=== PATIENT | male | born 1935 | race Caucasian/White ===

== ENCOUNTER 2017-01-27 16:04 | Inpatient (IN) | payer MEDICARE, OTHER ==
--- NOTE | ~2017-01-27 | HP ---
History And Physical [address] [address] NAME: VINNY OCONNELL : 37 STATUS : ADM [place] PAT#: [id number] AGE: 81 ADM/REG DATE : 01/27/17 MR#: [id number] REPORT SERV DATE: 01/28/17 DICTATED BY: SHERLEY BURGOS DATE: 01/28/17 REPORT STATUS : Draft TRANSCRIBED BY: MODL DATE: 01/28/17 DATE OF ADMISSION: 01/27/2017 LAUNDRY SUPERINTENDENT: Dr. Mejía. CHIEF COMPLAINT: Chest pain. HISTORY OF PRESENT ILLNESS: This is a pleasant 81-year-old white male with a known history of coronary artery disease status post CABG in 1997 with last stress test, no ischemia, on 11/21/2014. He does also have mild LV dysfunction and EF 40%-45% per last echocardiogram on 07/10/2015 along with a chronic left bundle-branch block. He does also have bradycardia, which has been followed. He presented to the emergency department yesterday afternoon as he reports developing nausea and diaphoresis all day after taking tramadol and minocycline, status post squamous cell carcinoma removal from the right forehead on Wednesday, 01/26. He reports yesterday he was awakened with chest pain that radiated to his back. He denies any further chest pain or nausea recurrence since the emergency department. He denies any shortness of breath. Today, he is feeling well with no complaints. Chronically, he reports mild shortness of breath when walking up a hill. He denies any orthopnea or edema. PAST MEDICAL HISTORY: 1. Bradycardia. 2. Coronary artery disease status post CABG. 3. Hypertension. 4. Left bundle-branch block chronically. 5. Mixed hyperlipidemia. 6. Mild LV dysfunction with ejection fraction of 40%-45% with a mild paradoxical motion (in patient with left bundle branch block). Last echo was on 07/10/2015. 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 9. Cataracts. 10.[place] cell cancer. 11.Melanoma. 12.Hypothyroidism. 13.Prostate problems. 14.Staph infection to right side of the face in 2007. PAST SURGICAL HISTORY: 1. CABG in 1997. 2. Right parotid gland and salivary gland lymph node removal from right neck and radiation for 30 treatments. 3. Surgical procedure for Staph infection complication to right side of the face in 2007. 4. Squamous cell cancer removed several days ago. 5. Intraocular lens implant. History And Physical [address] [address] NAME: VINNY OCONNELL : 37 STATUS : ADM [place] PAT#: [id number] AGE: 81 ADM/REG DATE : 01/27/17 MR#: [id number] REPORT SERV DATE: 01/28/17 DICTATED BY: SHERLEY BURGOS DATE: 01/28/17 REPORT STATUS : Draft TRANSCRIBED BY: KELSY DATE: 01/28/17 SOCIAL HISTORY: with 2 children. He has never smoked. He denies alcohol or illicit drug use. FAMILY HISTORY: Positive for father with first myocardial infarction at the age of 51. Brother with myocardial infarction at the age of 51. Mother with a CVA at the age of 40 with no cardiac history. REVIEW OF SYSTEMS: Last stress test on 11/21/2014, nuclear stress test with no ischemia. Ejection fraction was 41%. Last echocardiogram was on 07/10/2015 with an EF of 40%-45%. As above per HPI, all other systems reviewed and negative. ALLERGIES: 1. SULFA, REACTION NAUSEA. 2. MORPHINE, REACTION NAUSEA. 3. TRAMADOL, REACTION NAUSEA. 4. MINOCYCLINE, REACTION NAUSEA. HOME MEDICATIONS: Reviewed and are as follows, 1. Xanax 0.25 mg p.o. every morning. 2. Refresh eye drops instilled into both eyes every morning. 3. Ascorbic acid 1000 mg p.o. every morning. 4. Aspirin chewable 81 mg p.o. at bedtime. 5. Lipitor 20 mg p.o. at bedtime. 6. Vitamin B complex one tablet p.o. every morning. 7. Dulcolax 5 mg p.o. every morning. 8. Vitamin D 5000 units p.o. every morning. 9. Ibuprofen 200 mg p.o. daily p.r.n. headache. 10.Levothyroxine 88 mcg p.o. before breakfast. 11.Lisinopril 10 mg p.o. at bedtime. 12.Minocycline 100 mg p.o. b.i.d. x10 days. 13.Vitamin E 400 units p.o. every morning. 14.Tramadol 50-100 mg p.o. every four hours p.r.n. postop pain. 15.Patanase two sprays nasally every morning into each nostril. 16.PreviDent 1 dose p.o. q.48 hours. 17.Vitamin A 10,000 units p.o. every morning. PHYSICAL EXAMINATION: VITAL SIGNS: Oxygen saturation 97% on room air, weight 95.25, temperature 98, pulse 44, respiratory rate 25, and blood pressure 127/60. GENERAL: Well developed, well nourished. In no apparent distress. HEENT: Head normocephalic. No xanthelasma. Sclera clear, anicteric. Moist mucous membranes without pallor. No lymphadenopathy. No deficits noted. NECK: Trachea midline. Supple. No thyromegaly, JVD, or bruits. RESPIRATORY: Unlabored respirations. Breath sounds are clear bilaterally to posterior auscultation with fine crackles to the lower lobes. No wheezes, rhonchi, or crackles otherwise. History And Physical [address] [address] NAME: VINNY OCONNELL : 37 STATUS : ADM [place] PAT#: [id number] AGE: 81 ADM/REG DATE : 01/27/17 MR#: [id number] REPORT SERV DATE: 01/28/17 DICTATED BY: SHERLEY BURGOS DATE: 01/28/17 REPORT STATUS : Draft TRANSCRIBED BY: KELSY DATE: 01/28/17 CARDIOVASCULAR: Regular rate and rhythm. No murmur, rub, or gallop appreciated. No chest wall tenderness to palpation. ABDOMEN: Soft, nontender, and nondistended. Active bowel sounds auscultated x4 quadrants. No organomegaly and no masses. No aortic bruit. EXTREMITIES: DP/PT and radial pulses 2+ bilaterally. No clubbing, cyanosis, or edema. SKIN: Warm, dry, overall intact with no rash. Normal turgor. There is a dressing noted to the forehead, which is clean, dry, and intact. MUSCULOSKELETAL: Moves all extremities in bed without difficulty. NEURO/PSYCH: Alert and oriented x3 with no acute distress. Affect appropriate to current situation. LABORATORY DATA: BMP: Sodium 135, potassium 3.8, creatinine 1.05, glucose 134, magnesium 1.7. CBC: White blood cell count 9, hemoglobin 12.6, hematocrit 36.1, platelets 184. Troponin is less than 0.02 x3. STUDIES: 1. Chest x-ray: Moderate cardiomegaly. Prior CABG procedure noted. Lungs are clear. 2. EKG personally interpreted, sinus bradycardia at a rate of 50 with a chronic left bundle-branch block. 3. Telemetry: Sinus bradycardia with a chronic left bundle-branch block, rate 40. ASSESSMENT AND PLAN: 1. Precordial chest pain with atypical features. Serial enzymes are negative. The patient with a chronic left bundle-branch block. He denies any chest pain at this time. Cardiac risk factors include known history of CABG in 1997, hypertension, hyperlipidemia, age of 81, and family history of coronary artery disease. We will proceed with a vasodilator stress test for risk stratification. If it is low risk with no ischemia, RN is to discharge the patient to home with followup with primary care provider and with the patient's nutrition worker, Dr. Mejía, in one month. PCP followup will be in one-two weeks. It is possible that this chest pain is in association with the medication changes as the patient had noted nausea associated with the tramadol and minocycline as well. 2. Chronic bradycardia, this is noted. We will continue to avoid AV marline blocking agents. Asymptomatic. 3. Coronary artery disease status post CABG. We will continue the patient's home cardiac medications, which include aspirin, atorvastatin, and BERNIE inhibitor. Please note, patient is not on a beta-blaine secondary to bradycardia. Follow up with Dr. Mejía in one month. 4. Chronic left bundle-branch block, this is noted. 5. Hypertension, blood pressure is stable on low-dose lisinopril. 6. Hyperlipidemia, we will continue Lipitor. 7. Squamous cell carcinoma status post resection. I will defer to consumer insight analyst regarding continuation of tramadol and minocycline as these caused the patient to have nausea. We will ask him to follow up with them in the office. Again, he will also follow up with primary care. Further recommendations forthcoming for rounding nutrition worker for [employer] who will see the History And Physical [address] [place]. [address] NAME: VINNY OCONNELL : 39 STATUS : ADM [place] PAT#: [id number] AGE: 81 ADM/REG DATE : 01/27/17 MR#: [id number] REPORT SERV DATE: 01/28/17 DICTATED BY: SHERLEY BURGOS DATE: 01/28/17 REPORT STATUS : Draft TRANSCRIBED BY: KELSY DATE: 01/28/17 patient down in the stress testing area. CARMELITA/KELSY Sherley Burgos NP / [id number] CC: CAMERON Pennington M.D. William Warren, M.D.
[2017-01-27 15:29] LABS: BASOPHILS 0.1 %; BASOPHILS ABSOLUTE 0.01 10/3/uL (0.0-0.16); EOSINOPHILS 0.1 %; EOSINOPHILS ABSOLUTE 0.01 10/3/uL (0.0-0.53); HEMOGLOBIN 12.6 g/dL (13.6-17.8); IMMATURE GRANULOCYTES 0.3 %; IMMATURE GRANULOCYTES ABSOLUTE 0.03 10/3/uL (0.0-0.11); LYMPHOCYTES 11.2 %; LYMPHOCYTES ABSOLUTE 1.01 10/3/uL (0.67-4.30); MEAN CORPUS HGB CONC 34.9 g/dL (32.0-36.0); MEAN CORPUSCULAR HEMOGLOB 32.6 pg (26.0-34.0); MEAN CORPUSCULAR VOLUME 93.3 fL (80-100); MEAN PLATELET VOLUME 8.9 fL (9.2-13.0); MONOCYTES 6.5 %; MONOCYTES ABSOLUTE 0.58 10/3/uL (0.21-1.20); NEUTROPHILS 81.8 %; NEUTROPHILS ABSOLUTE 7.35 10/3/uL (2.02-8.40); PLATELET COUNT 184 10/3/uL (150-400); RBC DISTRIBUTION WIDTH 13.6 % (12.0-16.0); RED CELL COUNT 3.87 10/6/uL (4.7-6.1)
[2017-01-27 15:35] LABS: ER CBC TAT 0 Hrs 13 Mins; HEMATOCRIT 36.1 % (40.0-51.0); MANUAL DIFF NO %
[2017-01-27 15:45] LABS: INTERNATIONAL NORMAL RATI 1.1 UNITS (-); PARTIAL THROMBO TIME 26.2 SEC (22.5-37.2); PROTIME (NOT ORD) 13.7 SEC (12.0-14.5)
[2017-01-27 15:46] LABS: ALBUMIN 3.8 G/DL (3.5-5.0); ALKALINE PHOSPHATASE 61 U/L (45-117); BUN (BLOOD UREA NITROGEN) 22 MG/DL (6-23); CALCIUM, SERUM 9.1 MG/DL (8.5-10.4); CHEST PAIN PROFILE TAT 0 Hrs 24 Mins; CHLORIDE, SERUM 102 MMOL/L (96-112); CO2 (CARBON DIOXIDE) 23 MMOL/L (24-34); CREATININE 1.05 MG/DL (0.70-1.30); DIRECT BILIRUBIN < 0.1 MG/DL (0.0-0.4); GFR AFRICAN AMERICAN 78 ML/MIN (>=60); GFR NON AFRICAN AMERICAN 67 ML/MIN (>=60); GLUCOSE, SERUM 134 MG/DL (60-99); INDIRECT BILIRUBIN(NOT ORDER) 0.3 MG/DL (0.1-0.9); POTASSIUM, SERUM 3.8 MMOL/L (3.5-5.3); SGOT(AST) 14 U/L (5-40); SGPT(ALT) 19 U/L (5-65); SODIUM, SERUM 135 MMOL/L (135-148); TOTAL BILIRUBIN 0.4 MG/DL (0-1.2); TOTAL PROTEIN 7.3 G/DL (6.0-8.5); TROPONIN I <0.02 NG/ML (<0.05)
[~2017-01-27 16:04] MED LIST: ASAB PO; KLOR-CON M2020 MEQ PO; L20 PO; LIPITOR40 PO; MICROZIDE PO; PRIN20 PO; ULTRAM50 PO; VITS; X25 PO
[2017-01-27] MEDS ORDERED: LIPITOR40 PO (17:02)
[2017-01-27] MEDS ORDERED: X25 PO (17:02)
[2017-01-27] MEDS ORDERED: PRIN10 PO (17:03)
[2017-01-27] MEDS ORDERED: LEVOTHYROXIN88 MCG PO (17:03)
[2017-01-27] MEDS ORDERED: PATANASE NASAL SPRAY NAS (17:07)
[2017-01-27] MEDS ORDERED: PREVIDENT PO (17:08)
[2017-01-27] MEDS ORDERED: VITA10 PO (17:08)
[2017-01-27] MEDS ORDERED: ASAB PO (17:08)
[2017-01-27] MEDS ORDERED: VITC500 PO (17:09)
[2017-01-27] MEDS ORDERED: D 5000 PO (17:09)
[2017-01-27] MEDS ORDERED: VITAMIN B PO (17:09)
[2017-01-27] MEDS ORDERED: VITE PO (17:09)
[2017-01-27] MEDS ORDERED: MINOCIN100 PO (17:10)
[2017-01-27] MEDS ORDERED: ULTRAM50 PO (17:10)
[2017-01-27] MEDS ORDERED: ADVIL PO (17:11)
[2017-01-27] MEDS ORDERED: BIST PO (17:11)
[2017-01-27] MEDS ORDERED: REFRESH OPH (17:13)
[2017-01-28 04:35] LABS: TROPONIN I <0.02 NG/ML (<0.05)
[2017-01-28 17:43] LABS: CHOL/HDL RATIO(NOT ORDER) 5.8 (0-5); CHOLESTEROL 152 MG/DL (< 200); HDL CHOLESTEROL 26 MG/DL (> 39); LDL CHOLESTEROL 90 MG/DL (< 130); NON-HDL CHOLESTEROL 126 MG/DL (< 160); TRIGLYCERIDE 183 MG/DL (< 150)
[2017-01-29 05:26] LABS: HEMATOCRIT 38.5 % (40.0-51.0); HEMOGLOBIN 13.4 g/dL (13.6-17.8)
[2017-01-29 05:43] LABS: BUN (BLOOD UREA NITROGEN) 18 MG/DL (6-23); CHLORIDE, SERUM 109 MMOL/L (96-112); CO2 (CARBON DIOXIDE) 25 MMOL/L (24-34); CREATININE 1.13 MG/DL (0.70-1.30); GFR AFRICAN AMERICAN 71 ML/MIN (>=60); GFR NON AFRICAN AMERICAN 61 ML/MIN (>=60); GLUCOSE, SERUM 87 MG/DL (60-99); SODIUM, SERUM 142 MMOL/L (135-148)
[2017-01-29] MEDS ORDERED: BRILINTA90 MG PO (07:28)
[2017-01-29] MEDS ORDERED: NITROQUICK0.4 MG SL (07:28)
== END 2017-01-29 09:46 | disposition home or self-care (01) | DRG 247 ==
LOC: ER 16:04 → CDU1 18:50 → SSU1 01-28 16:40
PROVIDERS: Emergency Medicine; Internal Medicine Cardiovascular Disease; Nurse Practitioner Family
PROC: 027035Z Dilation of Coronary Artery, One Artery with Two Drug-eluting Intraluminal Devices, Percutaneous Approach (ICD-10-PCS; principal; 2017-01-28)
PROC: B2151ZZ Fluoroscopy of Left Heart using Low Osmolar Contrast (ICD-10-PCS; 2017-01-28)
PROC: B2181ZZ Fluoroscopy of Left Internal Mammary Bypass Graft using Low Osmolar Contrast (ICD-10-PCS; 2017-01-28)
PROC: B2171ZZ Fluoroscopy of Right Internal Mammary Bypass Graft using Low Osmolar Contrast (ICD-10-PCS; 2017-01-28)
PROC: B2111ZZ Fluoroscopy of Multiple Coronary Arteries using Low Osmolar Contrast (ICD-10-PCS; 2017-01-28)
PROC: B2131ZZ Fluoroscopy of Multiple Coronary Artery Bypass Grafts using Low Osmolar Contrast (ICD-10-PCS; 2017-01-28)
PROC: 4A023N7 Measurement of Cardiac Sampling and Pressure, Left Heart, Percutaneous Approach (ICD-10-PCS; 2017-01-28)
DX: I25.110 Atherosclerotic heart disease of native coronary artery with unstable angina pectoris (principal); I44.7 Left bundle-branch block, unspecified; R00.1 Bradycardia, unspecified; I10 Essential (primary) hypertension; E78.2 Mixed hyperlipidemia; E03.9 Hypothyroidism, unspecified; E78.00 Pure hypercholesterolemia, unspecified; Z95.1 Presence of aortocoronary bypass graft; Z85.89 Personal history of malignant neoplasm of other organs and systems; Z85.820 Personal history of malignant melanoma of skin; Z86.14 Personal history of Methicillin resistant Staphylococcus aureus infection; Z92.3 Personal history of irradiation; Z82.49 Family history of ischemic heart disease and other diseases of the circulatory system; Z82.3 Family history of stroke; Z88.2 Allergy status to sulfonamides; Z88.5 Allergy status to narcotic agent
CPT/HCPCS: 71010; 78452; 80048; 80061; 80076; 83690; 83735; 84484; 85014; 85018; 85025; 85610; 85730; 93005; 93017; 93459; 96374; 96375; 96376; 99152; 99153; 99285; A9270-GY; A9502; C1725; C1760; C1769; C1874; C9113; C9600; J0153; J0583; J2250; J2405; J3010; Q9967